=== PATIENT | male | born 1975 | race Caucasian/White ===

== ENCOUNTER 2017-08-02 13:26 | Emergency (ER) | payer OTHER ==
[~2017-08-02] VITALS: Ht 188 cm; Wt 120.2 kg
[~2017-08-02 13:26] MED LIST: ALLOPURINOL 10100 M1 PO; ALLOPURINOL 30300 M2; COLCHICINE; COLCRYS 0.6 MG0.6 MG; FLEXERIL; FLEXERIL PO; HYDROCODON-ACE1 EAC7 PO; IBUPROFEN 600600 M1 PO; INDOMETHACIN 2525 MG PO; INDOMETHACIN 5050 M1 PO; MEDROL DOSPAK21 TA1 PO; MEDROLDOSEPACK PO; NEXIUM; NORCO 5-325 TA1 EACH PO; PERCOCET 5-3251 EACH PO; SILVADENE20 GM TP; ULORIC80 MG PO; ULTRAM 50MG TAB50 MG; VICODIN ES TAB1 EACH; ZOFRAN ODT4 MG SUBLING
[2017-08-02] MEDS ORDERED: INDOMETHACIN 5050 MG PO (13:42)
[2017-08-02] MEDS ORDERED: ALLOPURINOL 10100 M1 PO (13:42)
[2017-08-02] MEDS ORDERED: XANAX1 MG PO (13:42)
[2017-08-02 14:35] LABS: ABSOLUTE EOSINOPHILS 0.2 thou/uL (0.0-0.7); ABSOLUTE MONOCYTES 0.6 thou/uL (0.0-1.2); BASOPHILS 0.5 %; EOSINOPHILS 3.2 %; HEMATOCRIT 46.3 % (42.0-52.0); HEMOGLOBIN 16.4 gm/dL (14.0-18.0); LYMPHOCYTES 29.8 %; MCH 31.5 pg (26.0-34.0); MCHC 35.5 g/dL (28.0-37.0); MCV 88.9 fL (80.0-100.0); MONOCYTES 8.5 %; MPV 7.8 fl. (7.2-11.1); NUCLEATED RBCS 0 /100WBC; PLATELET COUNT* 251 thou/uL (150-400); RBC 5.21 mil/uL (4.50-6.00); RDW-CV 13.3 % (10.5-14.5); WBC 6.8 thou/uL (4.0-11.0)
[2017-08-02 14:45] LABS: CALCIUM 9.2 mg/dL (8.5-10.1); CREATININE 1.2 mg/dL (0.6-1.3); POTASSIUM 3.2 mmol/L (3.5-5.1)
[2017-08-02 14:49] LABS: ALBUMIN 4.2 g/dL (3.4-5.0); TOTAL BILIRUBIN 0.8 mg/dL (<0.1-1.0); TOTAL PROTEIN 7.6 g/dL (6.4-8.2)
[2017-08-02] MEDS ORDERED: PHENERGAN 25 MG25 M1 PO (17:06)
[2017-08-02] MEDS ORDERED: NORCO 5-325 TA1 EACH PO (17:06)
[2017-08-02 17:29] VITALS: BP 107/69
== END 2017-08-02 17:30 | disposition home or self-care (01) ==
LOC: M.ERS 13:26
PROVIDERS: Personal Emergency Response Attendant
DX: A08.4 Viral intestinal infection, unspecified (principal); F17.210 Nicotine dependence, cigarettes, uncomplicated; Z98.890 Other specified postprocedural states; Z88.5 Allergy status to narcotic agent; Z91.013 Allergy to seafood

== ENCOUNTER → 2020-03-29 | Outpatient (CLI) | payer OTHER ==
[~2020-03-29] MED LIST changes: +INDOMETHACIN 5050 MG PO; +PHENERGAN 25 MG25 M1 PO; +XANAX1 MG PO
== END ==
LOC: M.RAD 10:49
PROVIDERS: ATTEND Nurse Practitioner Family
DX: M51.34 Other intervertebral disc degeneration, thoracic region (principal); J84.10 Pulmonary fibrosis, unspecified